=== PATIENT | female | born 2000 | race Caucasian/White ===

== ENCOUNTER 2019-10-09 20:36 | Outpatient (CLI) | payer OTHER | END 2019-10-09 20:37 | disposition critical access hospital (66) | LOC: EMS 20:36 | PROVIDERS: ATTEND Surgery | DX: F41.9 Anxiety disorder, unspecified (principal); R53.1 Weakness | CPT/HCPCS: A0425; A0429 ==

== ENCOUNTER 2019-10-09 20:55 | Emergency (ER) | payer OTHER ==
--- NOTE | 2019-10-09 21:19 | ED Physician Documentation ---
PD HPI CHEST PAIN - Stated complaint Stated Complaint: CP - Chief complaint Chief Complaint: Cardiac - History obtained from History obtained from: Patient - History of Present Illness Timing - onset: How many hours ago (1), Today Timing - onset during: Light activity (She noted onset of substernal to right chest pain associated with dyspnea while smoking cannabis. She denies any wheezing or cough. She had not had prior similar symptoms) Timing - duration: Hours (1) Timing - details: Abrupt onset, Still present Quality: Aching, Stabbing, Pain Location: Substernal, Right chest Radiation: Right upper extremity (She states she felt the pain go towards her right shoulder and had associated numbness in her right hand and fingers. She denies any numbness of the face or leg) Improved by: No: Rest Worsened by: Inspiration, Movement. No: Palpation Associated symptoms: Shortness of air, Feeling faint / dizzy (She felt lightheaded with this. She states she has been having episodes of lightheadedness for 2 to 3 weeks particularly with for standing up. She states she did have maybe a fainting episode once.). No: Nausea, Vomiting, Palpitations (She did feel that her heart was going fast but not irregular.), Cough Similar symptoms before: Has not had sx before (She had had lightheadedness episodes and a possible brief syncopal episode over the last few weeks. She has not had any chest pain episodes.) Recently seen: Not recently seen (She recently moved from [facility]. She is on medications of blood pressure and diuretic and also antidepressant. She is supposed to establish with the congenital heart disease cardiology at the and has an appointment in November. 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 Is followed [facility] in [place] and has now moved to [place]. She says last ECHO/ aortic U/S was about 3-4 months ago without any worsening of stenosis.) Review of Systems Constitutional: denies: Fever, Chills Nose: reports: Other (denies loss of taste nor smell.). denies: Rhinorrhea / runny nose, Congestion Throat: denies: Sore throat Cardiac: reports: Chest pain / pressure (just today [employer]). denies: Palpitations, Pedal edema Respiratory: reports: Dyspnea (at times with activity). denies: Cough, Wheezing Musculoskeletal: denies: Neck pain, Back pain Neurologic: reports: Near syncope (has been having lightheaded episodes the past few weeks.). 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 She is on enalapril and spironolactone as well as antidepressant. She follows with a congenital heart disease cardiology clinic) Respiratory: None Neuro: None GI: Cirrhosis Other Past Medical History: Aortic Atresia s/p fenestrated Fontan procedure - Past Surgical History Past Surgical History: Yes Cardiovascular: Cardiac catheterization, Other - Present Medications Home Medications: Ambulatory Orders Medication Instructions Recorded Confirmed Aspirin 81 mg PO DAILY 10/09/19 10/09/19 Enalapril [Vasotec] 5 mg PO DAILY 10/09/19 10/09/19 Spironolactone 25 mg PO DAILY 10/09/19 10/09/19 buPROPion [Wellbutrin Xl] 150 mg PO DAILY 10/09/19 10/09/19 Hydrocodone/Acetaminophen [[place] 1 each PO Q6H PRN #15 tablet 10/10/19 5-325 Tablet] Naproxen 375 mg PO BID #20 tablet 10/10/19 Potassium Chloride 10 meq PO DAILY #15 tablet.er 10/10/19 - Allergies Allergies/Adverse Reactions: Allergies Allergy/AdvReac Type Severity Reaction Status Date / Time sertraline [From Zoloft] Allergy Unknown Verified 10/09/19 21:03 - Social History Does the pt smoke?: Yes Smoking Status: Current every day smoker Does the pt drink ETOH?: Yes Does the pt have substance abuse?: Yes Substance Use and Type: Marijuana, Other - Immunizations Immunizations are current?: Yes - POLST Patient has POLST: No PD ED PE NORMAL - Vitals Vital signs reviewed: Yes - General General: Alert and oriented X 3, Well developed/nourished - HEENT HEENT: Moist mucous membranes, Pharynx benign - Neck Neck: Supple, no meningeal sign, No adenopathy - Cardiac Cardiac: No murmur. No: RRR (regular and initially tachycardic but decreased with pain meds. There was enough variability of the tachycardia so did not look like flutter. ) - Respiratory Respiratory: Clear bilaterally - Abdomen Abdomen: Normal bowel sounds, Soft, Non distended, No organomegaly, Other (some tenderness in epigastric area. ) - Back Back: No CVA TTP - Derm Derm: Normal color, Warm and dry - Extremities Extremities: Normal ROM s pain, No edema, No calf tenderness / cord - Neuro Neuro: Alert and oriented X 3, No motor deficit, Normal speech Results - Vitals Vitals: Vital Signs - 24 hr 10/09/19 10/09/19 10/09/19 21:03 21:29 22:37 Temperature 37.2 C Heart Rate 99 112 H 115 H Respiratory 18 18 18 Rate Blood Pressure 134/89 H 134/86 H 144/95 H O2 Saturation 96 95 98 10/09/19 10/09/19 10/10/19 22:39 23:48 00:11 Temperature Heart Rate 94 94 83 Respiratory 16 16 17 Rate Blood Pressure 91/69 78/53 L 97/72 O2 Saturation 96 94 98 10/10/19 10/10/19 10/10/19 01:04 01:34 01:52 Temperature Heart Rate 78 70 67 Respiratory 18 16 17 Rate Blood Pressure 81/66 L 93/64 126/80 O2 Saturation 97 97 96 10/10/19 02:34 Temperature Heart Rate 78 Respiratory 18 Rate Blood Pressure 96/64 O2 Saturation 98 Oxygen O2 Source Room air - EKG (time done) 20:58 Rate: Rate (enter#) (92) Rhythm: NSR [place]: Normal Intervals: Normal TN QRS: Normal Ischemia: Normal ST segments, Non specific changes (flattened t waves laterally. ). No: ST elevation c/w ischemia, ST depression - Labs Labs: Laboratory Tests 10/09/19 10/09/19 10/09/19 21:55 21:55 21:55 WBC 7.2 RBC 4.80 Hgb 14.0 Hct 44.0 MCV 91.7 MCH 29.2 MCHC 31.8 L RDW 15.7 H Plt Count 211 MPV 9.0 Neut # (Auto) 5.3 Lymph # (Auto) 1.1 L [place] # (Auto) 0.6 Eos # (Auto) 0.1 Baso # (Auto) 0.0 Absolute Nucleated RBC 0.00 Nucleated RBC % 0.0 D-Dimer 203.3 Sodium 137 Potassium 3.1 L Chloride 102 Carbon Dioxide 23 Anion Gap 12.0 BUN 13 Creatinine 0.9 Estimated GFR (MDRD) 79 L Glucose 113 H Calcium 9.3 Total Bilirubin 0.9 AST 20 ALT 24 Alkaline Phosphatase 55 Troponin I High Sens B-Natriuretic Peptide Total Protein 7.6 Albumin 4.6 Globulin 3.0 Albumin/Globulin Ratio 1.5 Lipase 29 Serum HCG, Qual Ethyl Alcohol < 5.0 10/09/19 10/09/19 10/09/19 21:55 21:55 21:55 WBC RBC Hgb Hct MCV MCH MCHC RDW Plt Count MPV Neut # (Auto) Lymph # (Auto) [place] # (Auto) Eos # (Auto) Baso # (Auto) Absolute Nucleated RBC Nucleated RBC % D-Dimer Sodium Potassium Chloride Carbon Dioxide Anion Gap BUN Creatinine Estimated GFR (MDRD) Glucose Calcium Total Bilirubin AST ALT Alkaline Phosphatase Troponin I High Sens 2.4 B-Natriuretic Peptide 18 Total Protein Albumin Globulin Albumin/Globulin Ratio Lipase Serum HCG, Qual NEGATIVE Ethyl Alcohol - Rads (name of study) chest angio Radiology: Prelim report reviewed (No PE nor signs of aortic dissection. No pneumonia. She is status post Fontan procedure with general decreased pulmonary flow to the left side subsequent to the procedure. There is abberant right subclavian with flow), See rad report PD MEDICAL DECISION MAKING - ED course Complexity details: considered differential (Recent travel and also has congenital aortic disorder. Would have concern for PE as well as aortic dissection or disruption. Other considerations would be congestive heart failure though she does not have edema. ), d/w patient, d/w store consultant ([facility], Cardiology Congenital Heart Disease, at .) ED course: Intermittent arrhythmia subsequent to the Fontan procedure and the atresia may account for some of her lightheaded episodes. Alternatively she does have hypotension here (in both arms measured, as is lower in right arm as expected from her condition) and low potassium so may need just to decrease some of her blood pressure medicines. We can decrease her spironolactone at this point and add a potassium supplement. Otherwise to follow-up with the congenital heart disease clinic and to call them for an appointment, to be seen sooner than November as scheduled. This was at the direction of the Dr. Sarah who is on- call that I talked with. Her chest pain now seems pleuritic and may related to the smoking cannibis, as came on at that time. No evidence for PE, aortic dissection, pneumonia nor PTX, heart failure nor carditis. Departure - Departure Disposition: 01 Home, Self Care Clinical Impression: Pleuritic chest pain Hypotension Qualifiers: Hypotension type: unspecified hypotension type Qualified Code(s): I95.9 - Hypotension, unspecified Condition: Stable Record reviewed to determine appropriate education?: Yes Instructions: ED Chest Pain Pleurisy Follow-Up: Medicine [Provider Group] Prescriptions: Naproxen 375 mg PO BID #20 tablet Hydrocodone/Acetaminophen [[place] 5-325 Tablet] 1 each PO Q6H PRN #15 tablet PRN Reason: Pain Potassium Chloride 10 meq PO DAILY #15 tablet.er Comments: I presume the pain you are having is some inflammation in the airways are around the lungs. There are no signs of any more significant process going on on your blood tests or scan. Take naproxen anti-inflammatory twice daily with food for the next week. To that add Tylenol or hydrocodone as needed for pain. On your blood test your potassium level is a little low so add a potassium supplement for the next week. Your blood pressure was also a little bit low and may be accounting for some of the lightheadedness or fainting you have been experiencing. Decrease your spironolactone to a half a tablet (12.5 mg) daily. Call the congenital heart disease cardiology clinic at and see if they can get you an appointment sooner than your scheduled November appt. I had talked with the Dr. Sarah from the cardiology this evening and he advised and reviewed the test results and this plan. Avoid cannibis use. Discharge Date/Time: 10/10/19 02:35
[2019-10-09] MEDS ORDERED: KETOROLAC 15 MG/ML VIAL IVP STA (21:46)
[2019-10-09] MEDS ORDERED: MORPHINE 2 MG/ML CARPUJECT IVP STA (21:46)
[2019-10-09] MEDS ORDERED: SODIUM CHLORIDE 0.9% 1,000 ML IV STA ×2 (21:46→23:53)
[2019-10-09 22:00] LABS: BASOPHILS % (AUTO) 0.4 %; EOSINOPHILS # (AUTO) 0.1 10^3/uL (0.0-0.7); EOSINOPHILS % (AUTO) 1.9 %; LYMPHOCYTES # (AUTO) 1.1 10^3/uL (1.5-3.5); LYMPHOCYTES % (AUTO) 15.7 %; MEAN CORPUSCULAR HEMOGLOBIN 29.2 pg (27.0-31.0); MEAN CORPUSCULAR HGB CONC 31.8 g/dL (32.0-36.0); MEAN CORPUSCULAR VOLUME 91.7 fL (81.0-99.0); MONOCYTES # (AUTO) 0.6 10^3/uL (0.0-1.0); MONOCYTES % (AUTO) 7.7 %; NEUTROPHILS # (AUTO) 5.3 10^3/uL (1.5-6.6); PLT - PLATELET COUNT 211 10^3/uL (130-450); RED CELL DISTRIBUTION WIDTH 15.7 % (12.0-15.0); WHITE BLOOD COUNT 7.2 x10^3/uL (4.8-10.8)
[2019-10-09 22:15] LABS: ALBUMIN 4.6 g/dL (3.2-5.5); ALBUMIN/GLOBULIN RATIO 1.5 (1.0-2.2); ALKALINE PHOSPHATASE 55 IU/L (42-121); ALT ALANINE AMINOTRANSFERASE 24 IU/L (10-60); AST ASPARTATE AMINOTRANSFERASE 20 IU/L (10-42); BILIRUBIN,TOTAL 0.9 mg/dL (0.2-1.0); BUN - BLOOD UREA NITROGEN 13 mg/dL (6-20); CALCIUM 9.3 mg/dL (8.5-10.3); CARBON DIOXIDE - CO2 23 mmol/L (21-32); CHLORIDE 102 mmol/L (101-111); CREATININE 0.9 mg/dL (0.4-1.0); GLUCOSE 113 mg/dL (70-100); LIPASE 29 U/L (22-51); SODIUM 137 mmol/L (135-145); TOTAL PROTEIN 7.6 g/dL (6.7-8.2)
[2019-10-09] MEDS ORDERED: IOVERSOL 320 100 ML VIAL IVP ONE ×2 (22:22→23:06)
[2019-10-09 22:32] LABS: HCG,QUALITATIVE BLOOD NEGATIVE
[2019-10-10] MEDS ORDERED: MORPHINE 2 MG/ML CARPUJECT IVP STA (01:49)
[2019-10-10] MEDS ORDERED: ACETAMINOPHEN 325 MG TABLET PO STA (01:49)
[2019-10-10] MEDS ORDERED: HYDROcod/ACET 5/325 Prepack 4 PO STA (01:49)
[2019-10-10 02:35] VITALS: BP 96/64
--- NOTE | 2019-10-10 09:43 | CT Report ---
PROCEDURE: ANGIO CHEST W/WO INDICATIONS: prior aortic surgery, CP today; concern of dissect CONTRAST: IV CONTRAST: Optiray 320 ml: 100 PO CONTRAST: *NO PO CONTRAST TECHNIQUE: After the administration of intravenous contrast, 2 mm thick sections acquired from the pulmonary api glory to the posterior costophrenic angles. 3-dimensional maximum intensity projection (MIP) coronal a nd sagittal reformats were then acquired through the thorax. For radiation dose reduction, the follow ing was used: automated exposure control, adjustment of mA and/or kV according to patient size. COMPARISON: None FINDINGS: Image quality: Excellent. Pulmonary arteries: Pulmonary arteries are normal in size, and demonstrate no intraluminal filling d efects to suggest central pulmonary embolism. Lungs and pleura: Lungs are clear. No pleural effusions or pneumothorax. Central and peripheral ai rways are patent. Mediastinum: Evidence of congenital complex cardiac anomaly, status post Fortan procedure. There is a probable ventricular septal defect. Both the left ventricle and right ventricle appear to supply the aorta. There has been a conduit created between the superior vena cava and pulmonary arterial tree. The aortic root is dilated. There is a septated structure at the left inferior aspect of the aortic r oot which is assumed to represent a dilated aortic cusp. Distal to this structure, the aorta tapers t o a normal caliber clinically. There is a narrowing at the origin of the brachiocephalic artery off t he aortic arch. The left common carotid artery is widely patent. The proximal left subclavian is diff usely narrowed. The right subclavian arises in an aberrant location off the proximal descending thora cic aorta. No mediastinal or hilar adenopathy. Thoracic aorta is normal in caliber and enhancement. Esophagus is normal in caliber, without hiatal hernia. Bones and chest wall: No suspicious bony lesions. Ribs and thoracic spine appear intact throughout. The thyroid is normal. No axillary or supraclavicular adenopathy. Abdomen: There are 2 enhancing lesions in the liver, which likely represent hemangiomas. Hepatomegaly . IMPRESSION: 1. No evidence acute pulmonary emboli. 2. Complex congenital cardiac anomaly, status post remote cardiac surgery. 3. Findings include a probable VSD and supply from the right and left ventricles to the aorta. Aortic root is dilated. A septation at the left aspect of the aortic root likely represents a dilated aorti c cusp. 4. 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 The right subclavian artery arises off the proximal descending thoracic aorta. 5. Surgical conduit has been created between the superior vena cava and the pulmonary tree. 6. Hepatomegaly. Probable small hemangiomas. Comment: Would recommend comparison with prior studies to evaluate the chronicity of the appearance o f the aortic root and proximal aorta. A preliminary report with the above findings was provided at the time of the study by [facility]. Above discussed with Dr. Dixon Spangler at the time of dictation on 10/10/2019 at 0938 hours. Reviewed by: Ilan Draper MD on 10/10/2019 9:42 AM PDT Approved by: Ilan Draper MD on 10/10/2019 9:42 AM PDT Station ID: [id number]
--- NOTE | 2019-10-10 18:15 | ED Physician Documentation ---
ED Addendum - Addendum Addendum: 10/10/19 18:[address] Hany Carcamo has called and has recommended the patient have a comparison done with prior studies to evaluate the aortic root as there is concern for the potential of dissection. I called the patient this afternoon and she was in the emergency department at the [facility] and I spoke with the medical student taking care of her Danielle Dc and she will relay this to her attending Dr. Do. We have pushed the images to the [facility] for their review. The patient herself is in good spirits stated that she was feeling some better but still concerned about this episode from yesterday.
== END 2019-10-10 02:35 | disposition home or self-care (01) ==
LOC: ED 20:55
DX: I95.9 Hypotension, unspecified (principal); E87.6 Hypokalemia; R07.81 Pleurodynia; I10 Essential (primary) hypertension; F17.200 Nicotine dependence, unspecified, uncomplicated
CPT/HCPCS: 36415; 71275; 80053; 80320; 83690; 83880; 84484; 84703; 85025; 85379; 93005; 96361; 96374; 96375; 99284; A9270; Q9967